=== PATIENT | female | born 1970 ===

== ENCOUNTER 2023-06-13 03:06 | Inpatient (IN) | payer BC ==
[~2023-06-13] VITALS: Ht 157.5 cm; Wt 71.7 kg
[2023-06-13] MEDS ORDERED: ATEN50TA PO (03:20)
[2023-06-13] MEDS ORDERED: ASPIRIN 81 MG TAB.CHEW PO ONE (03:45)
[2023-06-13] MEDS ORDERED: ONDANSETRON HCL 4 MG TABLET PO ONE (03:45)
[2023-06-13] MEDS ORDERED: METOPROLOL TARTRATE 50 MG TABLET PO ONE (03:45)
[2023-06-13] MEDS ORDERED: MAGNESIUM SULFATE 2 GM in IV DEXTROSE 5% 100 ML IV ONE (03:45)
[2023-06-13] MEDS ORDERED: METOPROLOL TARTRATE 5 MG/5 ML VIAL IVP ONE ×2 (03:45→03:48)
[2023-06-13] MEDS ORDERED: NITROGLYCERIN OINT 1 GM PACKET TP ONE ×2 (03:45→03:48)
[2023-06-13] MEDS ORDERED: HYDROMORPHONE 1 MG/1 ML DISP.SYRIN IV ONE (03:45)
[2023-06-13] MEDS ORDERED: ASPIRIN 81 MG TAB.CHEW ONE (03:47)
[2023-06-13] MEDS ORDERED: METOPROLOL TARTRATE 50 MG TABLET ONE (03:48)
[2023-06-13] MEDS ORDERED: MAGNESIUM SULFATE/D5W 200 ML ONE (03:48)
[2023-06-13] MEDS ORDERED: HYDROMORPHONE 1 MG/1 ML DISP.SYRIN ONE (03:49)
[2023-06-13 03:54] LABS: BASOPHILS % (AUTO) 0.3 % (0.0-2.0); EOSINOPHILS # (AUTO) 0.1 K/uL (0.0-0.7); EOSINOPHILS % (AUTO) 0.9 % (0.0-7.0); HEMATOCRIT 43.1 % (31.2-41.9); LYMPHOCYTES % (AUTO) 26.8 % (20.5-51.5); MEAN CORPUSCULAR HEMOGLOBIN 30.6 uug (24.7-32.8); MEAN CORPUSCULAR HGB CONC 35 g/dL (32.3-35.6); MEAN CORPUSCULAR VOLUME 87.8 fL (75.5-95.3); MONOCYTES # (AUTO) 0.6 K/uL (0.1-1.30); MONOCYTES % (AUTO) 8.5 % (0.0-11.0); NEUTROPHILS # (AUTO) 4.7 K/uL (1.8-8.9); NEUTROPHILS % (AUTO) 63.5 % (38.5-71.5); PLATELET COUNT (AUTO) 311 K/uL (179-408); RED BLOOD CELL COUNT(AUTO) 4.91 MIL/uL (3.63-4.92); RED CELL DISTRIBUTION WIDTH 13.6 % (12.3-17.7); WHITE BLOOD COUNT (AUTO) 7.3 K/uL (3.8-11.8)
[2023-06-13 03:59] LABS: DIFFERENTIAL COMMENT 1
[2023-06-13 04:00] LABS: MAGNESIUM 1.8 mg/dL (1.8-2.4)
[2023-06-13 04:01] LABS: CALCIUM 9.1 mg/dL (8.5-10.1); CARBON DIOXIDE 26 mmol/L (21-32); CHLORIDE 104 mmol/L (98-107); CREATININE 0.9 mg/dL (0.6-1.3); GLUCOSE 108 mg/dL (74-106); POTASSIUM 3.7 mmol/L (3.5-5.1); SODIUM SERUM 140 mmol/L (136-145); UREA NITROGEN, BLOOD 18 mg/dL (7-18)
[2023-06-13] MEDS ORDERED: ONDANSETRON 4 MG/2 ML VIAL ONE (04:04)
[2023-06-13 04:14] LABS: ALANINE AMINOTRANSFERASE 61 U/L (14-59); ALKALINE PHOSPHATASE 98 U/L (50-136); ASPARTATE AMINOTRANSFERASE 35 U/L (15-37); BILIRUBIN,DIRECT 0.1 mg/dL (0.0-0.2); BILIRUBIN,TOTAL 0.6 mg/dL (0.2-1.0); NT-PRO BNP 42 pg/mL (0-125); TOTAL PROTEIN, SERUM 8.1 g/dL (6.4-8.2)
[2023-06-13] MEDS ORDERED: ONDANSETRON 4 MG/2 ML VIAL IV ONE (04:15)
[2023-06-13] MEDS ORDERED: ENOXAPARIN SODIUM 80 MG/0.8 ML DISP.SYRIN SQ ONE ×2 (05:15→05:17)
[2023-06-13] MEDS ORDERED: ONDANSETRON 4 MG/2 ML VIAL IV PRN (06:15)
[2023-06-13] MEDS ORDERED: ACETAMINOPHEN 325 MG TABLET PO PRN (06:15)
[2023-06-13 06:42] VITALS: BP 123/77; TEMP 98; O2SAT 96
[2023-06-13] MEDS: PANTOPRAZOLE SODIUM 40 MG TABLET.DR PO SCH (06:50)
[2023-06-13] MEDS: ASPIRIN EC 81 MG TABLET.DR PO SCH (08:59)
[2023-06-13] MEDS ORDERED: HYDROCHLOROTHIAZIDE 12.5 MG CAPSULE PO SCH (09:00)
[2023-06-13] MEDS ORDERED: ATENOLOL 50 MG TABLET PO SCH (09:00)
[2023-06-13 12:00] VITALS: BP 117/77; TEMP 98; O2SAT 96
[2023-06-13 13:15] LABS: THYROID STIMULATING HORMONE 3.171 mIU/mL (0.358-3.740)
[2023-06-13 16:15] VITALS: BP 119/72; TEMP 98; O2SAT 98
[2023-06-13 20:00] VITALS: BP 111/71; TEMP 97.7; O2SAT 95
[2023-06-13] MEDS: ATORVASTATIN 20 MG TABLET PO SCH (20:33)
[2023-06-14] VITALS: BP 125/74; TEMP 98.1; O2SAT 96
[2023-06-14 04:00] VITALS: BP 120/68; TEMP 97.6; O2SAT 96
[2023-06-14] MEDS: PANTOPRAZOLE SODIUM 40 MG TABLET.DR PO SCH (06:30)
[2023-06-14 08:12] LABS: BASOPHILS % (AUTO) 0.3 % (0.0-2.0); EOSINOPHILS # (AUTO) 0.1 K/uL (0.0-0.7); EOSINOPHILS % (AUTO) 2.1 % (0.0-7.0); HEMATOCRIT 40.9 % (31.2-41.9); LYMPHOCYTES # (AUTO) 2.1 K/uL (0.8-4.8); LYMPHOCYTES % (AUTO) 35.7 % (20.5-51.5); MEAN CORPUSCULAR HEMOGLOBIN 30.1 uug (24.7-32.8); MEAN CORPUSCULAR HGB CONC 34 g/dL (32.3-35.6); MONOCYTES # (AUTO) 0.5 K/uL (0.1-1.30); MONOCYTES % (AUTO) 9.1 % (0.0-11.0); NEUTROPHILS # (AUTO) 3.1 K/uL (1.8-8.9); NEUTROPHILS % (AUTO) 52.8 % (38.5-71.5); PLATELET COUNT (AUTO) 308 K/uL (179-408); RED BLOOD CELL COUNT(AUTO) 4.65 MIL/uL (3.63-4.92); RED CELL DISTRIBUTION WIDTH 13.7 % (12.3-17.7); WHITE BLOOD COUNT (AUTO) 5.9 K/uL (3.8-11.8)
[2023-06-14 08:22] LABS: DIFFERENTIAL COMMENT 1
[2023-06-14 08:27] LABS: CALCIUM 8.6 mg/dL (8.5-10.1); CREATININE 0.9 mg/dL (0.6-1.3); POTASSIUM 3.8 mmol/L (3.5-5.1)
[2023-06-14 08:32] LABS: ALBUMIN 3.5 g/dL (3.4-5.0); BILIRUBIN,TOTAL 0.5 mg/dL (0.2-1.0); TOTAL PROTEIN, SERUM 7.5 g/dL (6.4-8.2)
[2023-06-14] MEDS: ASPIRIN EC 81 MG TABLET.DR PO SCH (09:38)
[2023-06-14 12:00] VITALS: BP 112/58; TEMP 97.8; O2SAT 96
[2023-06-14] MEDS: IV NS 1000 ML 1,000 ML IV ONE ×2 (15:55→16:00)
[2023-06-14] MEDS ORDERED: ENOXAPARIN SODIUM 80 MG/0.8 ML DISP.SYRIN SQ ONE (18:00)
[2023-06-14] MEDS ORDERED: ENOXAPARIN SODIUM 80 MG/0.8 ML DISP.SYRIN SQ SCH (18:00)
[2023-06-14 20:00] VITALS: BP 144/92; TEMP 98; O2SAT 99
[2023-06-14] MEDS: ATORVASTATIN 20 MG TABLET PO SCH (21:42)
[2023-06-15 00:06] VITALS: BP 117/70; TEMP 98.1; O2SAT 99
[2023-06-15 04:00] VITALS: BP 148/89; TEMP 98.4; O2SAT 97
[2023-06-15] MEDS: PANTOPRAZOLE SODIUM 40 MG TABLET.DR PO SCH (06:03)
[2023-06-15] MEDS ORDERED: ENOXAPARIN SODIUM 80 MG/0.8 ML DISP.SYRIN SQ ONE (07:45)
[2023-06-15 08:03] LABS: CALCIUM 8.7 mg/dL (8.5-10.1); CREATININE 0.8 mg/dL (0.6-1.3); POTASSIUM 3.6 mmol/L (3.5-5.1)
[2023-06-15 08:13] LABS: BASOPHILS % (AUTO) 0.2 % (0.0-2.0); EOSINOPHILS # (AUTO) 0.1 K/uL (0.0-0.7); EOSINOPHILS % (AUTO) 1.8 % (0.0-7.0); HEMOGLOBIN 13.5 g/dL (10.9-14.3); LYMPHOCYTES % (AUTO) 35.3 % (20.5-51.5); MEAN CORPUSCULAR HEMOGLOBIN 30.2 uug (24.7-32.8); MEAN CORPUSCULAR HGB CONC 35 g/dL (32.3-35.6); MEAN CORPUSCULAR VOLUME 87.4 fL (75.5-95.3); MONOCYTES # (AUTO) 0.4 K/uL (0.1-1.30); MONOCYTES % (AUTO) 7.6 % (0.0-11.0); NEUTROPHILS # (AUTO) 3.1 K/uL (1.8-8.9); NEUTROPHILS % (AUTO) 55.1 % (38.5-71.5); PLATELET COUNT (AUTO) 296 K/uL (179-408); RED BLOOD CELL COUNT(AUTO) 4.46 MIL/uL (3.63-4.92); WHITE BLOOD COUNT (AUTO) 5.7 K/uL (3.8-11.8)
[2023-06-15 08:20] LABS: DIFFERENTIAL COMMENT 1
[2023-06-15] MEDS ORDERED: SWABABLE VALVE TRANSFER SET EA MC ONE (08:34)
[2023-06-15] MEDS ORDERED: IOHEXOL 350 100 ML INFUS..BTL ONE (08:34)
[2023-06-15] MEDS ORDERED: IV NORMAL SALINE 250 ML IV ONE (08:36)
[2023-06-15] MEDS ORDERED: ATENOLOL 50 MG TABLET PO SCH (11:30)
[2023-06-15 12:36] VITALS: BP 143/74
[2023-06-15] MEDS ORDERED: ATOR20TA PO (14:09)
== END 2023-06-15 14:43 | disposition home or self-care (01) | DRG 305 ==
LOC: ER 03:11 → TELE3 06:04
PROVIDERS: ADMIT Nurse Practitioner Acute Care; ATTEND Nurse Practitioner Acute Care
PROC: 05H633Z Insertion of Infusion Device into Left Subclavian Vein, Percutaneous Approach (ICD-10-PCS; principal; 2023-06-15)
PROC: B547ZZA Ultrasonography of Left Subclavian Vein, Guidance (ICD-10-PCS; 2023-06-15)
DX: I16.0 Hypertensive urgency (principal); D68.69 Other thrombophilia; E66.01 Morbid (severe) obesity due to excess calories; E78.5 Hyperlipidemia, unspecified; I10 Essential (primary) hypertension; Z68.28 Body mass index [BMI] 28.0-28.9, adult; R07.9 Chest pain, unspecified
CPT/HCPCS: 36415; 71045; 71275; 83735; 84443; 84484; 85025; 85610; 85730; 93005; 93307; G0378; J1170; J1650; J2405; J3475; J3490; J7040; Q9967